=== PATIENT | female | born 1960 | race Caucasian/White ===

== ENCOUNTER → 2023-12-06 12:24 | Outpatient (REF) | payer OTHER, SELFPAY | LOC: HWRAD 12:24 | PROVIDERS: ATTENDING PHYSICIAN Nurse Practitioner Adult Health | DX: M54.32 Sciatica, left side (principal) | CPT/HCPCS: 72110 ==

== ENCOUNTER → 2024-01-12 16:01 | Outpatient (REF) | payer OTHER, SELFPAY | LOC: MRI 3T 16:01 | PROVIDERS: ATTENDING PHYSICIAN Family Medicine | DX: M51.36 Other intervertebral disc degeneration, lumbar region (principal) | CPT/HCPCS: 72148 ==

== ENCOUNTER → 2024-05-15 09:35 | Outpatient (REF) | payer OTHER, SELFPAY | LOC: HWRAD 09:35 | PROVIDERS: ATTENDING PHYSICIAN Nurse Practitioner; FAMILY PHYSICIAN Family Medicine | DX: Z78.0 Asymptomatic menopausal state (principal); M81.0 Age-related osteoporosis without current pathological fracture | CPT/HCPCS: 77080 ==